=== PATIENT | male | born 1985 | race African-American/Black ===

== ENCOUNTER 2019-01-05 00:01 | Emergency (ER) | payer SELFPAY | END 2019-01-05 01:00 | disposition left against medical advice (07) | LOC: ER 01:00 | DX: Z53.21 Procedure and treatment not carried out due to patient leaving prior to being seen by health care provider (principal) ==

== ENCOUNTER 2019-01-05 09:03 | Emergency (ER) | payer SELFPAY ==
[~2019-01-05] VITALS: Ht 182.9 cm; Wt 98.5 kg
[2019-01-05 09:12] VITALS: BP 122/77
[2019-01-05] MEDS ORDERED: IBUPROFEN 600MG TABLET PO ONE (11:00)
== END 2019-01-05 11:14 | disposition home or self-care (01) ==
LOC: ER 09:03
DX: S93.491A Sprain of other ligament of right ankle, initial encounter (principal); X50.1XXA Overexertion from prolonged static or awkward postures, initial encounter; Y93.B9 Activity, other involving muscle strengthening exercises; Y92.89 Other specified places as the place of occurrence of the external cause
CPT/HCPCS: 73610; 99283; Z7610

== ENCOUNTER 2019-12-31 21:19 | Emergency (ER) | payer MEDICAID ==
[~2019-12-31] VITALS: Ht 182.9 cm; Wt 104.0 kg
[2019-12-31 22:09] VITALS: BP 118/81
[2019-12-31] MEDS ORDERED: SODIUM CHLORIDE 0.9% 1,000 ML IV NR (23:15)
[2019-12-31] MEDS ORDERED: ACETAMINOPHEN 500MG TABLET PO NR (23:32)
== END 2020-01-01 01:27 | disposition home or self-care (01) ==
LOC: ER 21:19
DX: U07.1 COVID-19 (principal)
CPT/HCPCS: 99283

== ENCOUNTER 2020-03-26 05:20 | Emergency (ER) | payer MEDICAID ==
[~2020-03-26] VITALS: Ht 182.9 cm; Wt 104.0 kg
[2020-03-26] MEDS ORDERED: IBUPROFEN 600MG TABLET PO ONE (06:30)
[2020-03-26] MEDS ORDERED: ACETAMINOPHEN 650MG/20.3ML UDC PO ONE (06:30)
[2020-03-26] MEDS ORDERED: LIDOCAINE 1%/EPI 1:100,000 10 ML VIAL IJ SCH (06:30)
[2020-03-26] MEDS ORDERED: LIDOCAINE HCL/EPINEPHRINE 1%-EPI 1:100,000 30 ML VIAL INFIL ONE (06:30)
[2020-03-26] MEDS ORDERED: ACETAMINOPHEN 325MG TABLET PO ONE (06:45)
[2020-03-26 07:55] VITALS: BP 123/87
== END 2020-03-26 07:58 | disposition home or self-care (01) ==
LOC: ER 06:07
DX: L02.214 Cutaneous abscess of groin (principal)
CPT/HCPCS: 99283; J3490